=== PATIENT | female | born 1995 | race Caucasian/White ===

== ENCOUNTER 2019-03-20 02:06 | Emergency (ER) | payer SELFPAY ==
[~2019-03-20] VITALS: Ht 165.1 cm; Wt 72.6 kg
[2019-03-20 02:10] VITALS: BP 150/119
[2019-03-20] MEDS: ONDANSETRON 4 MG ODT PO ONE (03:33)
[2019-03-20] MEDS: fentaNYL 0.05 MG/ML VIAL IVP ONE (03:33)
[2019-03-20] MEDS: HYDROcodone/APAP 5/325 MG 1 TAB TAB PO ONE (03:36)
[2019-03-20] MEDS: LIDOCAINE MPF 1% 10 MG/ML VIAL INJ ONE (09:15)
[2019-03-20] MEDS: BACITRACIN OINT 500 UNITS/GM PKT TP ONE (10:04)
[2019-03-20 10:39] VITALS: BP 125/66
== END 2019-03-20 10:40 | disposition home or self-care (01) ==
LOC: MED 02:06
DX: S61.305A Unspecified open wound of left ring finger with damage to nail, initial encounter (principal); Y08.89XA Assault by other specified means, initial encounter; Y93.89 Activity, other specified; Y92.89 Other specified places as the place of occurrence of the external cause; Y99.8 Other external cause status; R42 Dizziness and giddiness; R51 Headache
CPT/HCPCS: 11730; 36415; 70450; 73130; 81025; 84702; 99284; J2001; J3010; Q0092; Q0162; 64450

== ENCOUNTER 2020-04-04 12:12 | Observation (INO) | payer MEDICAID, SELFPAY ==
[~2020-04-04] VITALS: Ht 162.6 cm; Wt 66.2 kg
[2020-04-04 12:45] VITALS: BP 124/75
[2020-04-04] MEDS ORDERED: PNV91TAB10 PO (13:02)
[2020-04-04] MEDS ORDERED: BETAMETH ACET/BETAMETH NA PH 30 MG/5 ML VIAL IM SCH (13:15)
[2020-04-05] MEDS ORDERED: BETAMETH ACET/BETAMETH NA PH 30 MG/5 ML VIAL IM ONE (09:00)
== END 2020-04-04 14:00 | disposition home or self-care (01) ==
LOC: MLD 12:12
PROVIDERS: ADMIT Obstetrics & Gynecology; ATTEND Obstetrics & Gynecology
DX: O30.042 Twin pregnancy, dichorionic/diamniotic, second trimester (principal); O26.892 Other specified pregnancy related conditions, second trimester; R10.9 Unspecified abdominal pain; O26.612 Liver and biliary tract disorders in pregnancy, second trimester; K83.1 Obstruction of bile duct; Z3A.24 24 weeks gestation of pregnancy
CPT/HCPCS: 59025; 81000; 96372; G0378; J0702

== ENCOUNTER 2020-04-05 14:06 | Observation (INO) | payer MEDICAID, SELFPAY ==
[~2020-04-05] VITALS: Ht 162.6 cm; Wt 64.9 kg
[~2020-04-05 14:06] MED LIST: PNV91TAB10 PO
[2020-04-05] MEDS ORDERED: BETAMETH ACET/BETAMETH NA PH 30 MG/5 ML VIAL IM SCH (15:00)
== END 2020-04-05 16:05 | disposition home or self-care (01) ==
LOC: MLD 14:06
PROVIDERS: ADMIT Obstetrics & Gynecology; ATTEND Obstetrics & Gynecology
DX: O26.892 Other specified pregnancy related conditions, second trimester (principal); R10.9 Unspecified abdominal pain; Z20.828 Contact with and (suspected) exposure to other viral communicable diseases; Z3A.22 22 weeks gestation of pregnancy
CPT/HCPCS: 59025; 87426; 96372; G0378; J0702; 88400

== ENCOUNTER 2020-04-21 21:54 | Observation (INO) | payer MEDICAID, OTHER, SELFPAY ==
[~2020-04-21] VITALS: Ht 162.6 cm; Wt 66.2 kg
[2020-04-21] MEDS ORDERED: cefTRIAXone 1,000 MG in LIDOCAINE MPF 1% 2.1 ML IM SCH (22:35)
[2020-04-21] MEDS ORDERED: LIDOCAINE 1% 500 MG/50 ML VIAL ONE (22:42)
[2020-04-21] MEDS ORDERED: cefTRIAXone 1,000 MG VIAL ONE (22:42)
[2020-04-21 23:02] VITALS: BP 130/68
== END 2020-04-21 23:30 | disposition home or self-care (01) ==
LOC: MLD 21:54
PROVIDERS: ADMIT Obstetrics & Gynecology; ATTEND Obstetrics & Gynecology
DX: O46.92 Antepartum hemorrhage, unspecified, second trimester (principal); O62.9 Abnormality of forces of labor, unspecified; O23.42 Unspecified infection of urinary tract in pregnancy, second trimester; O30.042 Twin pregnancy, dichorionic/diamniotic, second trimester; O26.612 Liver and biliary tract disorders in pregnancy, second trimester; K83.1 Obstruction of bile duct; Z3A.26 26 weeks gestation of pregnancy
CPT/HCPCS: 59025; 81000; 96372; G0378; J0696; J2001

== ENCOUNTER 2020-05-09 15:54 | Observation (INO) | payer MEDICAID, SELFPAY ==
[2020-05-09] MEDS ORDERED: VITA1TAB44 PO (16:05)
[2020-05-09] MEDS ORDERED: HYDR25CA1 PO (16:19)
[2020-05-09 16:30] VITALS: BP 118/70
== END 2020-05-09 18:30 | disposition home or self-care (01) ==
LOC: MLD 15:54
PROVIDERS: ADMIT Obstetrics & Gynecology; ATTEND Obstetrics & Gynecology
DX: O62.9 Abnormality of forces of labor, unspecified (principal); O26.613 Liver and biliary tract disorders in pregnancy, third trimester; K83.1 Obstruction of bile duct; O23.43 Unspecified infection of urinary tract in pregnancy, third trimester; Z86.79 Personal history of other diseases of the circulatory system; Z3A.29 29 weeks gestation of pregnancy
CPT/HCPCS: 76817; 81000; G0378

== ENCOUNTER 2020-05-19 21:00 | Observation (INO) | payer MEDICAID, SELFPAY ==
[~2020-05-19] VITALS: Ht 162.6 cm; Wt 72.1 kg
[~2020-05-19 21:00] MED LIST changes: +HYDR25CA1 PO; +VITA1TAB44 PO
[2020-05-19] MEDS ORDERED: MORPHINE SULFATE 5 MG/ML VIAL IM SCH (21:50)
[2020-05-19] MEDS ORDERED: PROMETHAZINE 25 MG/ML VIAL IM SCH (21:50)
[2020-05-19 21:53] VITALS: BP 120/60
[2020-05-19] MEDS ORDERED: MORPHINE SULFATE 10 MG/ML VIAL ONE (22:01)
[2020-05-19] MEDS ORDERED: PROMETHAZINE 25 MG/ML VIAL ONE (22:02)
[2020-05-19 22:10] VITALS: BP 130/62
[2020-05-19] MEDS: LACTATED RINGERS 1,000 ML IV SCH (23:48)
[2020-05-20] MEDS: LACTATED RINGERS 1,000 ML IV SCH ×2 (04:04)
[2020-05-20 08:05] LABS: BASOPHILS % (AUTO) 0.2 % (0.0-2.0); EOSINOPHILS % (AUTO) 0.2 % (0.0-4.0); HEMATOCRIT 33.1 % (36-48); HEMOGLOBIN 11.2 g/dL (12.0-16.0); LYMPHOCYTES # (AUTO) 0.9 K/uL (2.5-16.5); LYMPHOCYTES % (AUTO) 7.7 % (20.5-51.1); MEAN CORPUSCULAR HEMOGLOBIN 31 pg (27-31); MEAN CORPUSCULAR HGB CONC 34 g/dL (33-37); MEAN CORPUSCULAR VOLUME 90.1 fL (80-94); MONOCYTES # (AUTO) 0.8 K/uL (0.8-1.0); MONOCYTES % (AUTO) 6.9 % (1.7-9.3); NEUTROPHILS # (AUTO) 10.1 K/uL (1.8-7.7); PLATELET COUNT (AUTO) 233 K/uL (140-450); RED BLOOD CELL COUNT(AUTO) 3.67 MIL/uL (4.20-5.40); RED CELL DISTRIBUTION WIDTH 12.2 % (11.6-13.7); WHITE BLOOD COUNT (AUTO) 11.9 K/uL (4.8-10.8)
[2020-05-20] MEDS ORDERED: MORPHINE SULFATE 10 MG/ML VIAL ONE (08:17)
[2020-05-20 08:20] LABS: ALBUMIN 2.5 g/dL (3.4-5.0); ANION GAP 12.9 (8-16); CARBON DIOXIDE 25.2 mmol/L (21-32); CREATININE 0.7 mg/dL (0.6-1.3); POTASSIUM 4.1 mmol/L (3.5-5.1); TOTAL BILIRUBIN 0.8 mg/dL (0.0-1.0)
[2020-05-20] MEDS ORDERED: MORPHINE SULFATE 5 MG/ML VIAL IVP PRN (08:25)
[2020-05-20] MEDS ORDERED: PROMETHAZINE 25 MG/ML VIAL IVP PRN (08:25)
[2020-05-20 09:11] LABS: BILIRUBIN,URINE NEGATIVE (NEGATIVE); BLOOD, URINE 3+ (NEGATIVE); COLOR,URINE YELLOW (YELLOW); LEUKOCYTE ESTERASE ,URINE NEGATIVE (NEGATIVE); NITRITE, URINE NEGATIVE (NEGATIVE); PH,URINE 7.5 (5.0-9.0); UGLUCOSE TRACE (NEGATIVE)
[2020-05-20 09:14] LABS: APPEARANCE,URINE SLIGHTLY HAZY (CLEAR)
[2020-05-20 09:15] LABS: RBC,URINE 20-50 /HPF (0-5)
[2020-05-20 09:16] LABS: WBC,URINE 0-5 /HPF (0-5)
[2020-05-20] MEDS ORDERED: AZITHROMYCIN 500 MG in DEXTROSE 5% 250 ML IV SCH (10:15)
[2020-05-20] MEDS ORDERED: MAG SULF 20 GM/H2O PREMIX DRIP 500 ML IV SCH (10:15)
[2020-05-20] MEDS ORDERED: MAG SULF 2000 MG/WATER PREMIX 100 ML IV ONE (10:19)
[2020-05-20] MEDS ORDERED: AMPICILLIN 2,000 MG VIAL ONE (10:20)
[2020-05-20] MEDS ORDERED: MAG SULF 2000 MG/WATER PREMIX 100 ML IV SCH (11:00)
[2020-05-20] MEDS ORDERED: AMPICILLIN 2,000 MG in NACL 0.9% 100 ML IV SCH (12:00)
[2020-05-20] MEDS ORDERED: ACETAMINOPHEN EXTRA STRENGTH 500 MG TAB PO PRN (12:05)
[2020-05-20] MEDS ORDERED: ACETAMINOPHEN EXTRA STRENGTH 500 MG TAB ONE (12:06)
== END 2020-05-20 12:24 | disposition designated cancer center or children's hospital (05) ==
LOC: MLD 21:00 → MFCC 23:18
PROVIDERS: ADMIT Obstetrics & Gynecology; ATTEND Obstetrics & Gynecology
DX: O42.913 Preterm premature rupture of membranes, unspecified as to length of time between rupture and onset of labor, third trimester (principal); Z20.822 Contact with and (suspected) exposure to COVID-19; O30.043 Twin pregnancy, dichorionic/diamniotic, third trimester; O62.9 Abnormality of forces of labor, unspecified; O26.613 Liver and biliary tract disorders in pregnancy, third trimester; K83.1 Obstruction of bile duct; O99.323 Drug use complicating pregnancy, third trimester; F10.10 Alcohol abuse, uncomplicated; F19.10 Other psychoactive substance abuse, uncomplicated; Z3A.31 31 weeks gestation of pregnancy
CPT/HCPCS: 36415; 76805; 76810; 80053; 81000; 81001; 83735; 85025; 86886; 86900; 86901; 87426; 87653; 96361; 96365; 96366; 96368; 96375; G0378; J0290; J0456; J2270; J2550; J3475; J7120; 51702; 96372; J7060